=== PATIENT | male | born 1965 | race Caucasian/White ===

== ENCOUNTER 2019-08-29 17:28 | Emergency (ER) | payer BC ==
[~2019-08-29] VITALS: Ht 172.7 cm; Wt 86.4 kg
[~2019-08-29 17:28] MED LIST: NO HOME MEDS
[2019-08-29 17:30] VITALS: BP 161/116
[2019-08-29] MEDS ORDERED: ibuprofen 200mg tablet PO ONE (18:05)
[2019-08-29] MEDS ORDERED: IBUP-1985 PO (18:34)
[2019-08-29] MEDS ORDERED: LIDO700A32 TOP (18:34)
== END 2019-08-29 18:53 | disposition home or self-care (01) ==
LOC: ER 17:28
DX: M25.512 Pain in left shoulder (principal); R05 Cough; R50.9 Fever, unspecified; Z98.890 Other specified postprocedural states; Z79.899 Other long term (current) drug therapy
CPT/HCPCS: 73030; 99283